=== PATIENT | male | born 1980 | race Two or more races ===

== ENCOUNTER 2017-11-08 13:55 | Emergency (ER) | payer SELFPAY ==
[2017-11-08 14:13] VITALS: BP 128/69
[2017-11-08] MEDS ORDERED: Bupivacaine 0.5%/EPINEPHrine 1:200,000 30 ML SDV INJECT ONE (14:30)
[2017-11-08] MEDS ORDERED: Bupivacaine 0.5% 10 ML SDV INJECT ONE (14:46)
[2017-11-08] MEDS: Bupivacaine 0.5% 10 ML SDV ONE ×2 (14:47→14:48)
--- NOTE | 2017-11-08 14:49 | EDM.PDOC ---
ED HPI GENERAL MEDICAL PROBLEM - General Chief Complaint: Skin Complaint Stated Complaint: CyST ON LOWER BACK Time Seen by Provider: 11/08/17 14:22 Source of Information: Reports: Patient History Limitations: Reports: No Limitations - History of Present Illness INITIAL COMMENTS - FREE TEXT/NARRATIVE: Patient has a history of pilonidal cyst that was I&D by a general surgeon at [facility] one year ago. States approximately 4 days ago noticed increased swelling and pain to the same site. Patient was seen at the [facility] started on Augmentin and placed on tramadol with no significant improvement. He stopped taking the tramadol due to the increased drowsiness associated with taking this medication. Has been taking ibuprofen with no relief. Is requesting for the abscess to be I&D here in the ED. Pain is localized with no radiation. It is currently not draining. No fever/chills, nausea/vomiting, or any additional complaints. He was supposed to have surgery to resolve the pilonidal abscesses. Due to the time required to be off of work she has not followed through with this. He has no history of MRSA. Treatments CUSTOMER ORDER CLERK: Reports: Other (see below) Other Treatments CUSTOMER ORDER CLERK: tramadol Lower Back Pain Score (Numeric/FACES): 10 - Related Data Allergies Allergy/AdvReac Type Severity Reaction Status Date / Time No Known Allergies Allergy Verified 07/16/15 08:40 Home Meds: Home Meds Amoxicillin/Potassium Clav [Augmentin 875-125 Tablet] 1 tab PO BID 11/08/17 [ History] Atenolol 25 mg PO DAILY 11/08/17 [History] Lisinopril 10 mg PO DAILY 11/08/17 [History] Past Medical History Cardiovascular History: Reports: Hypertension Dermatologic History: Reports: Other (See Below) Other Dermatologic History: pilonidol cysts - Past Surgical History GI Surgical History: Reports: Appendectomy Social & Family History - Tobacco Use Smoking Status *Q: Current Every Day Smoker Years of Tobacco use: 10 Packs/Tins Daily: 0.5 Used Tobacco, but Quit: No - Caffeine Use Caffeine Use: Reports: Coffee - Alcohol Use Days Per Week of Alcohol Use: 3 Number of Drinks Per Day: 4 Total Drinks Per Week: 12 - Recreational Drug Use Recreational Drug Use: No ED ROS GENERAL - Review of Systems Review Of Systems: ROS reveals no pertinent complaints other than HPI. ED EXAM, SKIN/RASH Exam: See Below Exam Limited By: No Limitations General Appearance: Alert, WD/WN, No Apparent Distress Ears: Hearing Grossly Normal Nose: Normal Inspection Throat/Mouth: Normal Voice, No Airway Compromise Neck: Normal Inspection, Supple Respiratory/Chest: No Respiratory Distress, No Accessory Muscle Use Cardiovascular: Normal Peripheral Pulses, Regular Rate, Rhythm Peripheral Pulses: 4+: Radial (L) Rectal (Males) Exam: Other (Infected Pilonidal cyst measuring approx 2 cm indurated with 1 cm area of fluctuance present. Mild redness present. pain with palpation. No draining noted. ) Neurological: Alert, Oriented, CN II-XII Intact, Normal Cognition, No Motor/ Sensory Deficits Psychiatric: Normal Affect, Normal Mood Skin: Warm, Dry ED SKIN PROCEDURES - I&D Site: Pilonidal cyst Skin Prep: Sterile Drape Local Anesthesia: Lidocaine: Other (Bupivacaine) Local Anesthetic Volume: 3cc Area Incised With: 11 Blade Drainage: Purulent, Bloody, Large Amount Probed to Break Up Loculations: No Packed With: None Complications: No Progress/Comments: Patient will be referred to surgery for definitive treatment. Course - Vital Signs Last Recorded V/S: Last Vital Signs Temp 96.8 F 11/08/17 14:12 Pulse 83 11/08/17 14:12 Resp 20 11/08/17 14:12 BP 128/69 11/08/17 14:12 Pulse Ox 97 11/08/17 14:12 - Orders/Labs/Meds Meds: Medications Discontinued Medications Generic Name Dose Route Start Last Admin Trade Name Jacqueline PRN Reason Stop Dose Admin Bupivacaine HCl Confirm 11/08/17 14:42 11/08/17 14:48 Sensorcaine-Mpf 0.5% Administered 11/08/17 14:43 Not Given Dose 10 ml .ROUTE .STK-MED ONE Bupivacaine HCl 10 ml 11/08/17 14:46 11/08/17 14:48 Sensorcaine-Mpf 0.5% INJECT 11/08/17 14:47 10 ml ONETIME ONE Administration Bupivacaine HCl/Epinephrine Bitart 30 ml 11/08/17 14:30 Marcaine 0.5%/Epinephrine 1:200,000 INJECT 11/08/17 14:31 ONETIME ONE - Re-Assessments/Exams Free Text/Narrative Re-Assessment/Exam: Will I&D the infected pilonidal cyst. Bupivacaine ordered with epi. Per nursing staff we do not have bupivacaine with epi. We do have bupivacaine by itself. 11/08/17 15:00 pilonidal abscess I&D with copious amounts of purulent drainage. Dressing applied. Patient's on Augmentin already. Discharge instructions as documented. Departure - Departure Time of Disposition: 15:01 Disposition: Home, Self-Care 01 Condition: Good Clinical Impression: Pilonidal cyst with abscess - Discharge Information Instructions: Incision and Drainage of a Pilonidal Cyst, Care After Referrals: Andrade Aranda MD [Physician] - Forms: ED Department Discharge, ED Return to Work/School Form Additional Instructions: Continue taking the Augmentin as prescribed. Suggest taking sitz bath 3 times a day. Can apply warm compresses during the remaining part of the day to promote drainage from the abscess. If draining wound needs to be covered. Take Tylenol, ibuprofen, and/or tramadol for pain. Do not drive while taking the tramadol. Call and make an appointment with a general surgeon to be evaluated for definitive treatment. Return to the EDas needed for any new or worsening symptoms.
== END 2017-11-08 15:22 | disposition home or self-care (01) ==
LOC: JD.ED 13:55
DX: L05.01 Pilonidal cyst with abscess (principal); F17.210 Nicotine dependence, cigarettes, uncomplicated; Z79.899 Other long term (current) drug therapy; I10 Essential (primary) hypertension
CPT/HCPCS: 10060; 10080; 99283-25

== ENCOUNTER 2018-06-02 10:30 | Emergency (ER) | payer SELFPAY ==
[2018-06-02 10:42] VITALS: BP 157/98
[2018-06-02] MEDS ORDERED: LORazepam 0.5 MG Tab PO ONE (11:22)
[2018-06-02] MEDS ORDERED: Acetaminophen/oxyCODONE 325-5 MG Tab PO ONE (11:22)
--- NOTE | 2018-06-02 11:48 | EDM.PDOC ---
ED HPI GENERAL MEDICAL PROBLEM - General Chief Complaint: Skin Complaint Stated Complaint: ABSCESS ON LOWER BACK Time Seen by Provider: 06/02/18 11:10 Source of Information: Reports: Patient, RN Notes Reviewed - History of Present Illness INITIAL COMMENTS - FREE TEXT/NARRATIVE: 37 year old male comes in with infected pilonidal cyst. Chelsea mckoy has had this drained multiple times, last time here in this ED about 8 months ago. Started feeling swollen painful 2 days ago, much worse today. No other area of skin lesions. No fever or chills. No drainage. Lower Back Pain Score (Numeric/FACES): 8 - Related Data Allergies Allergy/AdvReac Type Severity Reaction Status Date / Time No Known Allergies Allergy Verified 06/02/18 10:42 Home Meds: Home Meds Atenolol 25 mg PO DAILY 11/08/17 [History] Lisinopril 10 mg PO DAILY 11/08/17 [History] Acetaminophen/HYDROcodone [[place] 325-5 MG] 1 tab PO Q6H PRN #10 tablet 06/02/18 [Rx] Doxycycline [Vibramycin] 100 mg PO BID #20 cap 06/02/18 [Rx] Past Medical History Cardiovascular History: Reports: Hypertension Dermatologic History: Reports: Other (See Below) Other Dermatologic History: pilonidol cysts - Past Surgical History GI Surgical History: Reports: Appendectomy Social & Family History - Tobacco Use Smoking Status *Q: Current Every Day Smoker Years of Tobacco use: 4 Packs/Tins Daily: 0.5 - Caffeine Use Caffeine Use: Reports: Coffee, Soda - Recreational Drug Use Recreational Drug Use: No ED ROS GENERAL - Review of Systems Review Of Systems: See Below Constitutional: Denies: Fever, Chills HEENT: Reports: No Symptoms Respiratory: Reports: No Symptoms GI/Abdominal: Denies: Nausea, Vomiting Skin: Reports: Erythema (area of erythema low mid back, multiple scars present from prior I and D, very mild swelling, marked tenderness, no fluctuance or white or discolored head visible at this time. ) Neurological: Denies: Weakness ED EXAM, SKIN/RASH Exam: See Below General Appearance: Alert, Moderate Distress Head: Atraumatic Neck: Supple, Full Range of Motion Respiratory/Chest: No Respiratory Distress, Lungs Clear, Normal Breath Sounds Cardiovascular: Regular Rate, Rhythm Neurological: Alert, Oriented, No Motor/Sensory Deficits Skin: Warm, Dry, Normal Color, Other (there is mild localized swelling of the very low mid back, prior healed incissions visible from prior D and C. no fluctuance, moderate localized tenderness, no evidence of prior drainage) ED SKIN PROCEDURES - I&D Site: low back Skin Prep: Providone-Iodine (Betadine) Local Anesthesia: Lidocaine: 1% Plain Area Incised With: 11 Blade Drainage: Bloody, Small Amount Course - Vital Signs Last Recorded V/S: Last Vital Signs Temp 98.2 F 06/02/18 10:39 Pulse 95 06/02/18 10:39 Resp 13 06/02/18 10:39 BP 157/98 H 06/02/18 10:39 Pulse Ox 100 06/02/18 10:39 - Orders/Labs/Meds Meds: Medications Discontinued Medications Generic Name Dose Route Start Last Admin Trade Name Freq PRN Reason Stop Dose Admin Lidocaine HCl 10 ml 06/02/18 12:50 06/02/18 13:00 Xylocaine 1% INJECT 06/02/18 12:51 10 ml ONETIME ONE Administration Lorazepam 0.5 mg 06/02/18 11:22 06/02/18 11:28 Ativan PO 06/02/18 11:23 0.5 mg ONETIME ONE Administration Oxycodone/Acetaminophen 1 tab 06/02/18 11:22 06/02/18 11:28 Percocet 325-5 Mg PO 06/02/18 11:23 1 tab ONETIME ONE Administration Departure - Departure Time of Disposition: 13:11 Disposition: Home, Self-Care 01 Condition: Fair Clinical Impression: Cellulitis Qualifiers: Site of cellulitis: trunk Site of cellulitis of trunk: unspecified site Qualified Code(s): L03.319 - Cellulitis of trunk, unspecified - Discharge Information Prescriptions: Acetaminophen/HYDROcodone [[place] 325-5 MG] 1 tab PO Q6H PRN #10 tablet PRN Reason: Pain Doxycycline [Vibramycin] 100 mg PO BID #20 cap Instructions: Cellulitis, Adult Referrals: PCP,None [Primary Care Provider] - Forms: ED Department Discharge, ED Return to Work/School Form Additional Instructions: warm compresses 3 to 4 times daily, doxycycline antibiotic twice daily for 10 days, avoid sunlight as much as possible when taking that antibiotic, tylenol or ibuprofen for mild to moderate discomfort or hydrocodone if needed for severe pain, do not drive or work when taking hydrocodone. You have been given sedative medication while here in the ED, do not drive for the next 10 hours. Follow up clinic if symptoms not resolving as expected, return to ED as needed.
[2018-06-02] MEDS ORDERED: Lidocaine 1% 10 ML MDV INJECT ONE (12:50)
== END 2018-06-02 13:25 | disposition home or self-care (01) ==
LOC: JD.ED 10:30
DX: L03.319 Cellulitis of trunk, unspecified (principal); I10 Essential (primary) hypertension; F17.210 Nicotine dependence, cigarettes, uncomplicated; Z79.899 Other long term (current) drug therapy; Z90.49 Acquired absence of other specified parts of digestive tract
CPT/HCPCS: 10060; 99283; A9270

== ENCOUNTER 2025-07-19 19:33 | Emergency (ER) | payer OTHER ==
[2025-07-19 20:30] VITALS: BP 166/92; PULSE 80
== END 2025-07-19 20:15 | disposition home or self-care (01) ==
LOC: JD.ED 19:33
DX: J01.10 Acute frontal sinusitis, unspecified (principal); Z79.899 Other long term (current) drug therapy; Z90.49 Acquired absence of other specified parts of digestive tract
CPT/HCPCS: 99283